=== PATIENT | female | born 1980 | race Caucasian/White ===

== ENCOUNTER 2019-10-26 14:30 | Outpatient (CLI) | payer OTHER ==
[2019-10-26] MEDS ORDERED: IBUP200C8 PO (15:10)
[2019-10-26 15:40] LABS: BASOPHILS # (AUTO) 0.03 x10^3/uL (0-0.1); BASOPHILS % (AUTO) 1 % (0-1); EOSINOPHILS # (AUTO) 0.06 x10^3/uL (0-0.4); EOSINOPHILS % (AUTO) 1 % (1-7); LYMPHOCYTES # (AUTO) 1.55 x10^3/uL (1-3.4); LYMPHOCYTES % (AUTO) 27 % (22-44); MD NO; MEAN CORPUSCULAR HEMOGLOBIN 23.7 pg (27.0-34.8); MEAN CORPUSCULAR HGB CONC 32.1 g/dL (32.4-35.8); MEAN CORPUSCULAR VOLUME 73.7 fL (80-100); MEAN PLATELET VOLUME 8.5 fL (7.4-10.4); MONOCYTES # (AUTO) 0.56 x10^3/uL (0.2-0.8); MONOCYTES % (AUTO) 10 % (2-9); NEUTROPHILS # (AUTO) 3.61 x10^3/uL (1.8-6.8); NEUTROPHILS % (AUTO) 62 % (42-75); PLATELET COUNT 351 x10^3/uL (130-400); RED BLOOD COUNT 4.62 x10^6/uL (3.82-5.3); RED CELL DISTRIBUTION WIDTH 17.9 % (9.6-15.2)
[2019-10-26 15:46] LABS: INTERNATIONAL NORMALIZED RATIO 1.01 (0.93-1.1); PROTHROMBIN TIME 10.7 Seconds (9.6-11.5)
[2019-10-26 15:49] LABS: ALANINE AMINOTRANSFERASE 12 U/L (12-78); ALBUMIN 4.3 g/dL (3.4-5.0); ANION GAP 7 mmol/L (5-15); CALCIUM 9.3 mg/dL (8.5-10.1); CHLORIDE 109 mmol/L (98-107); CREATININE 0.83 mg/dL (0.55-1.02)
[2019-10-26 15:54] LABS: ALKALINE PHOSPHATASE 26 U/L (45-117); BILIRUBIN,TOTAL 0.7 mg/dL (0.2-1.0); TOTAL PROTEIN 8.3 g/dL (6.4-8.2)
== END 2019-10-26 23:59 | disposition home or self-care (01) ==
LOC: STAR 14:30
PROVIDERS: ATTEND Specialist
DX: N83.209 Unspecified ovarian cyst, unspecified side (principal); R19.00 Intra-abdominal and pelvic swelling, mass and lump, unspecified site; R97.1 Elevated cancer antigen 125 [CA 125]; D25.9 Leiomyoma of uterus, unspecified
CPT/HCPCS: 36415; 80053; 84703; 85025; 85610; 85730

== ENCOUNTER 2019-10-30 07:21 | Day surgery (SDC) | payer OTHER ==
[~2019-10-30] VITALS: Ht 162.6 cm; Wt 56.7 kg
[~2019-10-30 07:21] MED LIST: BUPIVACAINE/PF 0.25% ONE; IBUP200C8 PO
[2019-10-30] MEDS ORDERED: LACTATED RINGERS 1,000 ML IV SCH (07:43)
[2019-10-30 08:13] LABS: HCG UR SG 1.023 (1.003-1.030)
[2019-10-30] MEDS ORDERED: CEFOTETAN PMX 2GM/50ML 50 ML IV ONE (09:00)
[2019-10-30] MEDS ORDERED: ACETAMINOPHEN 500 MG TABLET ONE (12:42)
[2019-10-30] MEDS ORDERED: GABAPENTIN 300 MG CAPSULE ONE (12:42)
[2019-10-30] MEDS ORDERED: MIDAZOLAM 1 MG/ML, 2ML ONE (12:46)
[2019-10-30] MEDS ORDERED: FENTANYL PF 250 MCG/5ML ONE ×2 (12:46→17:22)
[2019-10-30] MEDS ORDERED: DEXAMETHASONE 4 MG/ML, 1ML ONE (13:28)
[2019-10-30] MEDS ORDERED: CEFAZOLIN 1,000 MG ONE (13:28)
[2019-10-30] MEDS ORDERED: PROPOFOL 10 MG/ML, 20ML ONE (13:28)
[2019-10-30] MEDS ORDERED: ROCURONIUM 10MG/ML,5ML ONE (13:28)
[2019-10-30] MEDS ORDERED: ONDANSETRON 2MG/ML, 2ML ONE (13:28)
[2019-10-30] MEDS ORDERED: FENTANYL PF 100 MCG/2ML IV PRN (14:00)
[2019-10-30] MEDS ORDERED: HYDROmorphone 2 MG/ML, 1ML IVPush PRN (14:00)
[2019-10-30] MEDS ORDERED: hydrALAzine 20 MG/ML, 1ML IV PRN (14:00)
[2019-10-30] MEDS ORDERED: DIAZEPAM 5 MG/ML, 2ML IVPush PRN (14:00)
[2019-10-30] MEDS ORDERED: ALBUTEROL SULFATE 2.5 MG/3 ML NPPB PRN (14:00)
[2019-10-30] MEDS ORDERED: KETOROLAC 30 MG/1 ML IV PRN (14:00)
[2019-10-30] MEDS ORDERED: PROMETHAZINE 25 MG/ML, 1ML IV PRN (14:00)
[2019-10-30] MEDS ORDERED: ACETAMINOPHEN 325 MG TABLET PO PRN (14:00)
[2019-10-30] MEDS ORDERED: LABETALOL 5MG/ML, 20ML IV PRN (14:00)
[2019-10-30] MEDS ORDERED: MEPERIDINE/PF 25MG/0.5ML IVPush PRN (14:00)
[2019-10-30] MEDS ORDERED: OXYcodone 5 MG/5 ML ORAL.SOL UDC PO PRN (14:00)
[2019-10-30] MEDS ORDERED: OXYcodone 5 MG/5 ML ORAL.SOL UDC ONE (17:40)
[2019-10-30 20:14] VITALS: BP 120/81
== END 2019-10-30 21:04 | disposition home or self-care (01) ==
LOC: OUT 07:21 → 4NE 18:18 → OUT 21:04
PROVIDERS: ATTEND Specialist
DX: R19.00 Intra-abdominal and pelvic swelling, mass and lump, unspecified site (principal); N80.1 Endometriosis of ovary; N80.2 Endometriosis of fallopian tube; N80.0 Endometriosis of uterus; D25.1 Intramural leiomyoma of uterus; N88.8 Other specified noninflammatory disorders of cervix uteri; N83.11 Corpus luteum cyst of right ovary; N73.6 Female pelvic peritoneal adhesions (postinfective); Q16.9 Congenital malformation of ear causing impairment of hearing, unspecified; Z79.899 Other long term (current) drug therapy; Z98.890 Other specified postprocedural states; Z82.49 Family history of ischemic heart disease and other diseases of the circulatory system
CPT/HCPCS: 36415; 58573; 81025; 86850; 86900; 86923; 88112; 88305; 88309; 88331; J0690; J1100; J2250; J2405; J2704; J3010; J3490; J7120; S2900; G0378

== ENCOUNTER 2020-02-09 08:15 | Outpatient (CLI) | payer OTHER ==
[~2020-02-09 08:15] MED LIST changes: -BUPIVACAINE/PF 0.25% ONE
== END 2020-02-09 23:59 | disposition home or self-care (01) ==
LOC: CFH 08:15
PROVIDERS: ATTEND Obstetrics & Gynecology
DX: M85.88 Other specified disorders of bone density and structure, other site (principal); N83.209 Unspecified ovarian cyst, unspecified side; N92.0 Excessive and frequent menstruation with regular cycle; N80.3 Endometriosis of pelvic peritoneum; R97.1 Elevated cancer antigen 125 [CA 125]; R19.00 Intra-abdominal and pelvic swelling, mass and lump, unspecified site
CPT/HCPCS: 77080